=== PATIENT | female | born 1995 | race Caucasian/White ===

== ENCOUNTER 2024-04-21 19:58 | Emergency (ER) | payer OTHER, SELFPAY ==
[2024-04-21 20:16] VITALS: BP 140/75; PULSE 55; RESP 16; TEMP 37.1; O2SAT 97; BMI 27.5
--- NOTE | 2024-04-21 20:57 | ED.LOWEXIN ---
HPI - Extremity Injury (Lower) General Chief Complaint: Extremity Injury, Lower Stated Complaint: rt knee pain Time Seen by Provider: 04/21/24 20:02 Source: patient Mode of arrival: Ambulatory History of Present Illness HPI Narrative: 28-year-old female presents for right knee pain. One week ago she went to [facility] where she underwent negative x-ray imaging it was diagnosed with a likely meniscal injury. She states that she has been working with her primary care doctor to obtain an MRI, but due to issues with she has had difficulty in getting this study. She states that last night she thinks she may have ?tweaked? her knee again and it was very painful. She has been taking ibuprofen for pain. Comes into ED wearing a knee brace Related Data Allergies Allergy/AdvReac Type Severity Reaction Status Date / Time No Known Drug Allergies Allergy Verified 04/21/24 20:16 Patient History Social History Smoking Status: Never smoker Smoking Status: Never smoker alcohol intake frequency: a few times a month Substance Use Type: does not use Exam Initial Vital Signs Initial Vital Signs: Vital Signs Temperature 98.8 F 04/21/24 20:16 Pulse Rate 55 L 04/21/24 20:16 Respiratory Rate 16 04/21/24 20:16 Blood Pressure 140/75 04/21/24 20:16 Pulse Oximetry 97 04/21/24 20:16 Oxygen Delivery Method Room Air 04/21/24 20:16 Const: Awake, alert, no acute distress, nontoxic appearing MSK: no deformity, wearing knee immobilizer, full range of motion, pulses equal Skin: Warm, Dry, intact, no rashes Neuro: AO x3, CN II-XII grossly intact, moves all extremities Course Orders Ordered: Discontinued Medications Hydrocodone Bitart/Acetaminophen (Hydrocodone/Acet 5/325 Prepack) 1 bottle MISC DIRECTED ONE Stop: 04/21/24 20:58 Last Admin: 04/21/24 21:03 Dose: 1 bottle Documented By: DAISY Vital Signs Vital signs: Vital Signs - 8 hr 04/21/24 20:16 Temperature 98.8 F Pulse Rate 55 L Respiratory Rate 16 Blood Pressure 140/75 Pulse Oximetry 97 Oxygen Delivery Method Room Air MDM - Extremity Injury (Lower) MDM Narrative Medical decision making narrative: Acute worsening of previous knee pain. Patient frustrated that she is unable to obtain MRI. No new traumatic injury. Patient tearful when informed that we could not obtain a nonemergent MRI from the emergency department. She was advised to take Tylenol in addition to ibuprofen for additional pain control. Prepack of pain medications sent with the patient with precautions Discharge Plan Departure Patient Disposition: Home Clinical Impression: Acute knee pain Instructions: DI for Knee Pain Activity Restrictions/Additional Instructions: Take up to 1000 mg of Tylenol along with 400 mg of ibuprofen every 6-8 hours as needed for pain. Make sure to take no more than 4000 mg of Tylenol daily. If you are still in significant pain a small amount of narcotic pain medication has been sent with you. Do not take this medication with alcohol or before driving as it causes drowsiness and can lead to accidents. These medications also cause constipation, so if you take them take a stool softener. Referrals: Eddi Willingham ARNP [Primary Care Provider] - Stand Alone Forms: Patient Portal/API
[2024-04-21] MEDS: HYDROCODONE/ACET 5/325 PREPACK 1 BOTTLE MISC (21:03)
[2024-04-21 21:11] VITALS: BP 135/72; PULSE 52; RESP 16; O2SAT 99
== END 2024-04-21 21:12 | disposition home or self-care (01) ==
PROVIDERS: Emergency Provider Emergency Medicine; PCP Nurse Practitioner Family
DX: M25.561 Pain in right knee (principal)
CPT/HCPCS: 99282; 99283

== ENCOUNTER → 2024-04-23 07:14 | Outpatient (CLI) | payer OTHER, SELFPAY ==
--- NOTE | 2024-04-23 07:16 | DI.MRI.S_ITS ---
PROCEDURE: MR KNEE RT WO CON INDICATIONS: pain in right knee TECHNIQUE: Noncontrast sagittal PD fast spin echo and T2 fast spin echo with fat saturation, sagittal 3-D FLASH with fat saturation; coronal T1 spin echo and PD fast spin echo with fat saturation, and axial PD fast spin echo with fat saturation through the knee. COMPARISON: None. FINDINGS: Abnormal appearance of the medial meniscus some of which may be related to remote postoperative changes however findings are suspicious for [id number]-[id number] changes with frayed edges, degeneration of the anterior and posterior horn apices and abnormal increased T2 weighted signal of the posterior horn extending to the inferior margin. Diffuse absence/fraying of the mid body. Follow-up suggested if no intervention performed. Abnormal appearance laterally suspicious for acute versus chronic posterolateral corner injury with abnormal signal within and surrounding the lateral collateral ligament, proximal and mid aspect of the popliteus tendon, increased signal and irregularity of the popliteal fibular ligament suggestive of partial tear versus near full-thickness tear, as well as increased T2 weighted signal, fluid posterior to the posterior horn of the lateral meniscus, suspicious for meniscocapsular separation. Increased T2 weighted signal with thickening of the distal biceps femoris tendon attachment. Suspected parameniscal cysts anterior and posterior to the lateral meniscus measuring up to 1 cm. Mild knee joint effusion. Mild increased T2 weighted signal surrounding the medial collateral ligament and at the posterolateral aspect of the medial patellar retinaculum may be related to chronic versus acute injury/strain. No full-thickness tear. Mild cartilaginous thinning in the medial compartment without evidence of focal chondral defect. The lateral and patellofemoral compartment cartilage is within normal limits. Cruciate ligaments: The anterior and posterior cruciate ligaments appear intact. Medial structures: The posterior oblique ligament, semimembranosus tendon insertions, oblique popliteal ligament intact. Visualized portions of the pes anserinus tendons appear normal. Iliotibial band appears normal. Anterior structures: The quadriceps and patellar tendons appear intact. Patellar alignment is normal. No femoral trochlear dysplasia or ventral trochlear prominence. No edema in the infrapatellar fat pad. No bone marrow contusions or fractures. No Brandt's cyst. Image quality: Excellent. IMPRESSION: Abnormal appearance of the medial meniscus may be related to postoperative changes however findings are suspicious for kcmlq-qi-dwyqdhg changes with frayed edges, degeneration and abnormal signal of the posterior horn extending to the inferior margin. Diffuse absence/fraying of the mid body. Follow-up suggested if no intervention performed. Abnormal appearance laterally suspicious for posterolateral corner injury as discussed above. Increased signal with thickening of the distal biceps femoris tendon attachment. Suspected parameniscal cysts lateral meniscus measuring 1 cm. Mild knee joint effusion. Mild increased signal surrounding the medial collateral ligament and at the posterolateral aspect of the medial patellar retinaculum may be related to chronic versus acute injury/strain. Mild cartilaginous thinning in the medial compartment. Dictated by: Darrel Mclaughlin M.D. on 04/23/2024 at 14:39 Approved by: Darrel Mclaughlin M.D. on 04/23/2024 at 16:05
== END ==
LOC: MRI 07:15
PROVIDERS: PCP Nurse Practitioner Family; Referring Provider Nurse Practitioner Family; Visit Provider Nurse Practitioner Family
DX: M25.561 Pain in right knee (principal); M25.461 Effusion, right knee
CPT/HCPCS: 73721

== ENCOUNTER → 2024-09-23 15:01 | Outpatient (CLI) | payer OTHER, SELFPAY ==
[2024-09-23 16:30] LABS: Free T4, Direct Thyroxine 0.88 ng/dL (0.78-2.19)
[2024-09-23 16:44] LABS: Thyroid Stimulating Hormone 3.72 uIU/mL (0.47-4.68)
== END ==
PROVIDERS: PCP Nurse Practitioner Family; Referring Provider Obstetrics & Gynecology; Visit Provider Obstetrics & Gynecology
DX: N93.9 Abnormal uterine and vaginal bleeding, unspecified (principal)
CPT/HCPCS: 36415; 84439; 84443

== ENCOUNTER → 2024-11-13 09:58 | Outpatient (CLI) | payer OTHER, SELFPAY ==
[2024-11-13 10:56] LABS: Follicle Stimulating Hormone 2.27 mIU/mL; Luteinizing Hormone 18.4 mIU/mL; Prolactin 25.1 ng/mL (3.0-18.6)
== END ==
PROVIDERS: PCP Nurse Practitioner Family; Referring Provider Obstetrics & Gynecology; Visit Provider Obstetrics & Gynecology
DX: N93.9 Abnormal uterine and vaginal bleeding, unspecified (principal)
CPT/HCPCS: 36415; 82627; 82670; 82677; 82679; 83001; 83002; 83498; 84144; 84146; 84402; 84403; 84999

== ENCOUNTER → 2024-12-07 18:57 | Outpatient (CLI) | payer OTHER, SELFPAY ==
--- NOTE | 2024-12-07 18:59 | DI.MRI.S_ITS ---
PROCEDURE: MR BRAIN (PITUITARY) WWO CON INDICATIONS: symptomatic elevated prolactin, irregular menses TECHNIQUE: Noncontrast sagittal and axial FLAIR, axial gradient echo, axial diffusion and ADC through the brain. Thin-slice sagittal and coronal T1 spin echo, coronal T2 fast spin echo through the pituitary. After the administration contrast, optional dynamic coronal T1 spin echo, thin-slice coronal and sagittal T1 spin echo images through the pituitary fossa; axial and coronal and sagittal T1 spin echo with fat saturation through the brain. COMPARISON: None. FINDINGS: Image quality: Diagnostic, with note made of motion artifact. There is artifact associated with the metallic dental work, particularly on the postcontrast images. Pituitary Gland: The pituitary gland demonstrates normal signal and bulk. On the postcontrast imaging, no masses or abnormally enhancing areas are seen. The pituitary stalk and infundibulum have an unremarkable appearance. A normal appearing pituitary bright spot is seen posteriorly on the precontrast sagittal T1-weighted images. The optic chiasm and the ventral forebrain have an unremarkable appearance. CSF Spaces: Ventricles are normal in size and shape. Basal cisterns are patent. No extra-axial fluid collections. Brain: No intracranial bleeds or mass effects. No abnormal intracranial enhancement. Bejarano-white matter interface is intact. Diffusion weighted images demonstrate no acute ischemic insults. Brainstem is normal. Normal intravascular flow voids are present. Skull and face: Calvarial marrow is normal in signal. Orbits appear normal. Sinuses: Sinuses and mastoids are clear. IMPRESSION: No pituitary abnormality is seen to explain the patient's presenting symptoms. Dictated by: Blair Douglas M.D. on 12/08/2024 at 11:23 Approved by: Blair Douglas M.D. on 12/08/2024 at 11:25
== END ==
PROVIDERS: PCP Nurse Practitioner Family; Referring Provider Obstetrics & Gynecology; Visit Provider Obstetrics & Gynecology
DX: R79.89 Other specified abnormal findings of blood chemistry (principal)
CPT/HCPCS: 70553; A9579

== ENCOUNTER → 2025-02-06 12:53 | Outpatient (CLI) | payer OTHER, SELFPAY ==
[2025-02-06 14:52] LABS: Follicle Stimulating Hormone 3.25 mIU/mL
== END ==
PROVIDERS: PCP Nurse Practitioner Family; Referring Provider Obstetrics & Gynecology; Visit Provider Obstetrics & Gynecology
DX: R79.89 Other specified abnormal findings of blood chemistry (principal); N93.9 Abnormal uterine and vaginal bleeding, unspecified
CPT/HCPCS: 36415; 83001; 83002; 84146; 84403

== ENCOUNTER 2025-04-08 19:47 | Emergency (ER) | payer OTHER, SELFPAY ==
[2025-04-08 20:04] VITALS: BP 123/71; PULSE 55; RESP 18; TEMP 36.8; O2SAT 100; BMI 26.9
--- NOTE | 2025-04-08 20:08 | DI.RAD.S_ITS ---
PROCEDURE: XR FINGER LT MIN 2V INDICATIONS: dislocated pinky/popped it back, still painful TECHNIQUE: AP hand, 2 views of the 5th finger(s) acquired. COMPARISON: None. FINDINGS: Bones: No fractures or dislocations. No suspicious bony lesions. Soft tissues: No suspicious soft tissue calcifications. IMPRESSION: Anatomic finger alignment. No dislocation is seen. No obvious fracture is identified. Dictated by: Aurelio Dobbins M.D. on 04/08/2025 at 20:27 Approved by: Aurelio Dobbins M.D. on 04/08/2025 at 20:28
[2025-04-08 23:18] VITALS: BP 127/59; PULSE 55; RESP 17; O2SAT 100
--- NOTE | 2025-04-08 23:24 | ED.UPPEXIN ---
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 Here for x-ray to evaluate for possible underlying fracture. No other injuries. No previous injuries to that finger. Took ibuprofen 6:30 p.m., no other treatments. Related Data Home Medications ?Medication ?Instructions ?Recorded ?Confirmed cyclobenzaprine 5 mg tablet 5 mg PO BEDTIME PRN 11/13/24 11/13/24 Allergies Allergy/AdvReac Type Severity Reaction Status Date / Time No Known Drug Allergies Allergy Verified 11/20/24 14:33 Patient History Medical History (Updated 04/08/25 @ 23:[address] Mccann MD) Elevated prolactin level Primary dysmenorrhea Abnormal uterine bleeding (AUB) Social History Smoking Status: Never smoker Smoking Status: Never smoker alcohol intake frequency: a few times a month Exam Narrative Exam Narrative: GENERAL: Well-developed patient, in mild distress. HEAD: Atraumatic. Normocephalic. EYES: Pupils equal round and reactive. Extraocular motions intact. No scleral icterus. No injection or drainage. ENT: Nose without bleeding, purulent drainage. Throat without erythema, tonsillar hypertrophy or exudate. Airway patent. NECK: Trachea midline. Non tender CARDIOVASCULAR: Regular rate and rhythm without murmurs, gallops, or rubs. RESPIRATORY: Clear to auscultation. Breath sounds equal bilaterally. No wheezes, rales, or rhonchi. GASTROINTESTINAL: Abdomen soft, non-tender, nondistended. EXTREMITIES: Some swelling without gross deformity to the left 5th finger, no lymphangitic streaking, no hand edema. Nontender at wrist forearm elbow upper arm, proximal affected ipsilateral extremity. BACK: Nontender without deformity or crepitance. No flank tenderness. NEURO: AOx3. Motor functions grossly nonfocal. SKIN: No rash or erythema of visible areas Initial Vital Signs Initial Vital Signs: Vital Signs Temperature 98.3 F 04/08/25 20:04 Pulse Rate 55 L 04/08/25 20:04 Respiratory Rate 18 09/18/25 20:04 Blood Pressure 123/71 09/18/25 20:04 Pulse Oximetry 100 04/08/25 20:04 Oxygen Delivery Method Room Air 04/08/25 20:04 Course Orders Ordered: ED Orders 04/08/25 20:08 XR finger LT min 2V Stat Vital Signs Vital signs: Vital Signs - 8 hr 04/08/25 23:18 04/08/25 23:18 Pulse Rate 55 L Respiratory Rate 17 Blood Pressure 127/59 L Pulse Oximetry 100 Oxygen Delivery Method Room Air MDM - Extremity Injury (Upper) MDM Narrative Medical decision making narrative: Left 5th finger injury playing volleyball, blocking a strike, with clinical description of likely 5th finger dislocation and patient relocation by pulling forward. Here for x-ray to rule out fracture. X-ray was obtained, bones look anatomic, no mentioned of any fracture. Finger splint applied, with Coban wrap to adjacent finger. Advised [id number] Tylenol and or Motrin as needed. Follow up with PCP later this week. Discharged home. Discharge Plan Departure Patient Disposition: Home Clinical Impression: Dislocation of fifth finger, metacarpal joint, proximal, left, closed Activity Restrictions/Additional Instructions: Left 5th finger dislocation and relocation by history, slight swelling on examination here. X-ray without obvious fracture, no subluxation or dislocation present now. No other injuries obvious to proximal left upper extremity. X-ray negative for fracture or subluxation, looks anatomic per radiologist's report. Placed in finger splint with Coban wrapping to the adjacent 4th finger. Avoid use of that finger for this next week, assess with your regular provider out of splint at that time. Return earlier to this/nearest emergency department for any change worsening symptoms or any concerns prior. Take Tylenol and or Motrin as needed for pain control. Prescriptions: No Action cyclobenzaprine 5 mg tablet 5 mg PO BEDTIME PRN Referrals: Eddi Willingham ARNP [Primary Care Provider, Nursing] Stand Alone Forms: Patient Portal/API
--- NOTE | 2025-04-08 23:38 | PC.NURSE ---
Pt placed finger splint wrapped with coban and yuri taped to 4th finger
== END 2025-04-08 23:42 | disposition home or self-care (01) ==
PROVIDERS: Emergency Provider Emergency Medicine; PCP Nurse Practitioner Family
DX: S63.065A Dislocation of metacarpal (bone), proximal end of left hand, initial encounter (principal); W21.06XA Struck by volleyball, initial encounter
CPT/HCPCS: 29130; 73140; 99281; 99283

== ENCOUNTER → 2025-04-27 07:10 | Outpatient (CLI) | payer OTHER, SELFPAY ==
--- NOTE | 2025-04-27 07:12 | DI.MRI.S_ITS ---
PROCEDURE: MR HAND LT WO CON INDICATIONS: LEFT HAND INJURY TECHNIQUE: Coronal and axial T1 spin echo and T2 fast spin echo with fat saturation. Post- contrast coronal and axial T1 spin echo with fat saturation images through the left hand and wrist. COMPARISON: None. FINDINGS: At the 5th proximal interphalangeal joint there is periarticular soft tissue swelling, laxity of the radial collateral ligament with discontinuity noted proximally. Bowstringing of the adjacent flexor tendon and the accessory collateral ligaments are thickened and ill-defined, more pronounced radially. Extensor tendon is unremarkable. Bone marrow edema in the head and neck of the 5th proximal phalanx. No discrete fracture line. Remaining fingers , hand and wrist are unremarkable. IMPRESSION: Grade 3 small finger PIP proper and accessory radial collateral ligament sprain. Grade 1 -2 small finger PIP accessory ulnar collateral ligament sprain. Dictated by: Guille De M.D. on 04/28/2025 at 10:04 Approved by: Guille De M.D. on 04/28/2025 at 10:40
== END ==
LOC: MRI 07:11
PROVIDERS: PCP Family Medicine; Referring Provider Family Medicine; Visit Provider Family Medicine
DX: S63.637A Sprain of interphalangeal joint of left little finger, initial encounter (principal); S66.197A Other injury of flexor muscle, fascia and tendon of left little finger at wrist and hand level, initial encounter; X58.XXXA Exposure to other specified factors, initial encounter
CPT/HCPCS: 73218